=== PATIENT | male | born 1980 | race Caucasian/White ===

== ENCOUNTER 2017-11-10 09:02 | Emergency (ER) | payer SELFPAY ==
[~2017-11-10] VITALS: Ht 188 cm; Wt 92.7 kg
[2017-11-10 09:09] VITALS: Ht 188 cm; Wt 92.7 kg
[2017-11-10] MEDS ORDERED: PLAQUENIL200 MG PO (09:11)
[2017-11-10] MEDS ORDERED: ENBREL25 MG/0.5 SQ (09:11)
[2017-11-10] MEDS ORDERED: NORCO 7.5/325 T1 TA1 PO (11:34)
[2017-11-10 11:42] VITALS: BP 131/80
== END 2017-11-10 11:43 | disposition home or self-care (01) ==
LOC: D.ER 09:02
DX: S59.901A Unspecified injury of right elbow, initial encounter (principal); W19.XXXA Unspecified fall, initial encounter; Y93.89 Activity, other specified; Y92.019 Unspecified place in single-family (private) house as the place of occurrence of the external cause